=== PATIENT | male | born 1975 | race Caucasian/White ===

== ENCOUNTER 2016-10-10 20:34 | Emergency (ER) | payer MEDICAID ==
--- NOTE | ~2016-10-10 | CR72 ---
[facility]. [facility] A Service of [facility] & [facility] RADIOLOGY TEXT RESULTS PATIENT: CHARLINE VALENCIA LOCATION: SED : 77 UNIT #: [id number] AGE: [address]: Pepe Gillespie MD SEX: M ORDER DR: [id number] [place] [id number] E MR#: [id number] Acc #: [id number] NAME: CHARLINE VALENCIA. : 1975 SEX: M STUDY DATE/TIME: 10/10/2016 21:56 UNIT: SED ROOM: STUDY DESCRIPTION: CR Chest Single View Portable Attending Physician: Pepe Gillespie M.D. Ordering Physician: Pepe Gillespie M.D. Primary Care Physician: No Primary Care Physician MEDICAL IMAGING REPORT This report is preliminary unless electronic signature is present. EXAM Portable chest. HISTORY Productive cough, congestion, light-headedness, worse last several days. COMPARISON 06/11/2013 FINDINGS A single AP portable view of the chest shows both lungs to be clear. The heart is normal in size. The mediastinal contour is normal. No significant bone abnormalities are seen. IMPRESSION Normal AP portable chest. Dictated by... Faizan Culver M.D. THIS IS AN ELECTRONICALLY VERIFIED REPORT Faizan Culver M.D. at 10/11/2016 2:05 PM Derrick TD: 10/10/2016 23:02 JOB #: [id number] MEDICAL IMAGING REPORT Page 1 of 1
[~2016-10-10 20:34] MED LIST: ATARAX PO; ATIVAN PO; BACTRIM DS TABL1 TA1 PO; BENZONATATE PO; ELIMITE60 GM TOP; FLEXERIL10 M1 PO; NO MEDICATIONS; VICODIN 5/1 TAB 5/50 PO; VOLTAREN50 MG PO; VOLTAREN75 MG PO; ZITHROMAX PO
== END 2016-10-10 22:35 | disposition home or self-care (01) ==
LOC: SED 20:34
DX: J06.9 Acute upper respiratory infection, unspecified (principal); F17.200 Nicotine dependence, unspecified, uncomplicated
CPT/HCPCS: 71010; 94640; 99284